=== PATIENT | female | born 1960 | race Caucasian/White ===

== ENCOUNTER 2021-06-25 06:20 | Emergency (ER) | payer OTHER ==
[2021-06-25] MEDS ORDERED: Cyclobenzaprine 10 MG Tab PO ONE (06:44)
[2021-06-25] MEDS ORDERED: Ketorolac 15 MG/ML SDV IM STA (06:44)
[2021-06-25] MEDS ORDERED: Lidocaine 5% 700 MG Patch TOP ONE (06:45)
--- NOTE | 2021-06-25 06:51 | EDM.PDOC ---
ED HPI GENERAL MEDICAL PROBLEM - General Chief Complaint: Back Pain or Injury Stated Complaint: BACK PAIN Time Seen by Provider: 06/25/21 06:44 - History of Present Illness INITIAL COMMENTS - FREE TEXT/NARRATIVE: HISTORY AND PHYSICAL: History of present illness: 60-year-old female who presents ER today complaining of upper back pain that occurred when she was lifting a box to go to the freezer. Patient denies any recent fevers, shakes, chills, nausea, vomiting, diarrhea, dysuria, frequency, urgency, chest pain, shortness of breath. Patient reports this occurred at approximately 5 AM while she was at [employer]. Patient has any weakness to her upper or lower extremities. Patient has any paresthesias. Patient reports pain increases with rotation of her torso. Review of systems: As per history of present illness and below otherwise all systems reviewed and negative. Past medical history: As per history of present illness and as reviewed below otherwise noncontributory. Surgical history: As per history of present illness and as reviewed below otherwise noncontributory. Social history: No reported history of drug abuse. Family history: As per history of present illness and as reviewed below otherwise noncontributory. Physical exam: This patient was seen and evaluated during the 2019 SARS-CoV-2 novel coronavirus pandemic period. Community viral transmission is ongoing at time of this en counter and the emergency department is operating under pandemic response procedures. Constitutional: Patient is oriented to person, place, and time. Appears well- developed and well-nourished. No distress. HEENT: Moist mucous membranes Head: Normocephalic and atraumatic Eyes: Right eye exhibits no discharge. Left eye exhibits no discharge. No scleral icterus Neck: Normal range of motion. No tracheal deviation present. Cardiovascular: Normal rate and regular rhythm. Pulmonary: Effort normal, no respiratory distress. Abdominal: No distention Musculoskeletal: Normal range of motion Neurologic: Alert and oriented to person, place and time. Skin: [place], warm and dry. Psychiatric: Normal mood and affect. Behavior is normal. Judgment and thought content normal. Nursing note and vital signs have been reviewed Patient has tenderness palpation to her mid thoracic region both midline and left and right lateral. Patient has no step-off or deformity noted on palpation of her thoracic spine. Lungs are clear without any wheezing with a rhonchi. Diagnostics: [] Therapeutics: [] Assessment and plan: 60-year-old with acute onset of back pain while lifting a heavy object at work. Patient be given Flexeril p.o., Toradol IM and a Lidoderm patch. Patient will be instructed to follow-up with Workmen's Comp. Reassessment at the time of disposition demonstrates that the patient is in no acute distress. The patient has remained stable throughout the entire ED visit and is without objective evidence for acute process requiring urgent intervention or hospitalization. The patient is stable for discharge, counseling is provided as documented above, discussed symptomatic treatment and specific conditions for return. I have spoken with the patient/caregiver and discussed todays findings, in addition to providing specific details for the plan of care. Questions are answered and there is agreement with the plan. Definitive disposition and diagnosis as appropriate pending reevaluation and review of above. - Related Data Allergies Allergy/AdvReac Type Severity Reaction Status Date / Time penicillin G Allergy Other Verified 06/25/21 06:41 Home Meds: Home Meds Cyclobenzaprine [Flexeril] 10 mg PO TID PRN #20 tab 06/25/21 [Rx] Ibuprofen 600 mg PO Q6HR PRN #30 tablet 06/25/21 [Rx] Ipratropium [Atrovent] 1 puff INH Q4H 06/25/21 [History] Lidocaine 5% [Lidoderm 5%] 1 patch TOP DAILY PRN #7 patch 06/25/21 [Rx] Past Medical History Respiratory History: Reports: Asthma Social & Family History - Family History Family Medical History: No Pertinent Family History - Recreational Drug Use Recreational Drug Use: No ED ROS GENERAL - Review of Systems Review Of Systems: See Below ED EXAM, GENERAL - Physical Exam Exam: See Below Course - Vital Signs Last Recorded V/S: Last Vital Signs Temp 97.7 F 06/25/21 06:39 Pulse 115 H 06/25/21 06:39 Resp 15 06/25/21 06:39 BP 122/71 06/25/21 06:39 Pulse Ox 97 06/25/21 06:39 - Orders/Labs/Meds Meds: Medications Discontinued Medications Generic Name Dose Route Start Last Admin Trade Name Freq PRN Reason Stop Dose Admin Cyclobenzaprine HCl 10 mg 06/25/21 06:44 06/25/21 06:55 Cyclobenzaprine 10 Mg Tab PO 06/25/21 06:45 10 mg ONETIME ONE Administration Ketorolac Tromethamine 15 mg 06/25/21 06:44 06/25/21 06:53 Ketorolac 15 Mg/Ml Sdv IM 06/25/21 06:45 15 mg Q6H STA Administration Lidocaine 700 mg 06/25/21 06:45 06/25/21 06:55 Lidocaine 5% 700 Mg Patch TOP 06/25/21 06:46 700 mg ONETIME ONE Administration Departure - Departure Time of Disposition: 06:47 Disposition: Home, Self-Care 01 Condition: Good Clinical Impression: Back pain Qualifiers: Back pain location: low back pain Chronicity: acute - Discharge Information Prescriptions: Cyclobenzaprine [Flexeril] 10 mg PO TID PRN #20 tab PRN Reason: Muscle Spasm Ibuprofen 600 mg PO Q6HR PRN #30 tablet PRN Reason: Pain Lidocaine 5% [Lidoderm 5%] 1 patch TOP DAILY PRN #7 patch PRN Reason: Pain Instructions: Back Injury Prevention, [id number] Referrals: PCP,None [Primary Care Provider] - Forms: ED Department Discharge Additional Instructions: You were seen and evaluated in the ER today secondary to acute onset of back pain from lifting heavy object. You were given a shot of Toradol, Flexeril and a lidocaine patch. You will be given a prescription for a lidocaine patch, ibuprofen and Flexeril. Please follow-up with the occupational medicine clinic for further evaluation. [facility] [address] The following information is given to patients seen in the emergency department who are being discharged to home. This information is to outline your options for follow-up care. We provide all patients seen in our emergency department with a follow-up referral. The need for follow-up, as well as the timing and circumstances, are variable d epending upon the specifics of your emergency department visit. If you don't have a primary care physician on staff, we will provide you with a referral. We always advise you to contact your personal physician following an emergency department visit to inform them of the circumstance of the visit and for follow-up with them and/or the need for any referrals to a consulting specialist. The emergency department will also refer you to a specialist when appropriate. This referral assures that you have the opportunity for follow-up care with a specialist. All of these measure are taken in an effort to provide you with optimal care, which includes your follow-up. Under all circumstances we always encourage you to contact your private physician who remains a resource for coordinating your care. When calling for follow-up care, please make the office aware that this follow-up is from your recent emergency room visit. If for any reason you are refused follow-up, please contact the [facility] Emergency Department at and asked to speak to the emergency department charge nurse. [facility] [address] [place] [address] [id number] [facility] [address] [place] [id number] Sepsis Event Note (ED) - Evaluation Sepsis Screening Result: No Definite Risk
== END 2021-06-25 07:24 | disposition home or self-care (01) ==
LOC: MW.ED 06:20
DX: M54.5 Low back pain (principal); Z88.0 Allergy status to penicillin; X50.0XXA Overexertion from strenuous movement or load, initial encounter
CPT/HCPCS: 96372; 99283; A9270; J1885

== ENCOUNTER 2022-06-07 16:21 | Emergency (ER) | payer BC, OTHER ==
[2022-06-07] MEDS ORDERED: Morphine 4 MG/ML VIAL IVPUSH ONE (17:50)
[2022-06-07] MEDS ORDERED: Dextrose 5%-Lactated Ringers 1,000 ML IV STA (17:50)
[2022-06-07] MEDS ORDERED: Ondansetron 4 MG/2 ML SDV IVPUSH ONE (17:50)
[2022-06-07 18:19] LABS: POTASSIUM,K 3.4 mmol/L (3.5-5.1)
[2022-06-07 18:40] LABS: CORONAVIRUS COVID-19 NAA NEGATIVE (NEGATIVE); INFLUENZA A NAA NEGATIVE (NEGATIVE); INFLUENZA B NAA NEGATIVE (NEGATIVE)
[2022-06-07] MEDS ORDERED: Iopamidol 755 MG/ML 500 ML Multipack Bottle IVPUSH STA (18:57)
== END 2022-06-07 20:01 | disposition home or self-care (01) ==
LOC: MW.ED 16:21
DX: S16.1XXA Strain of muscle, fascia and tendon at neck level, initial encounter (principal); R10.84 Generalized abdominal pain; R11.2 Nausea with vomiting, unspecified; R19.7 Diarrhea, unspecified; R05.9 Cough, unspecified; Z88.6 Allergy status to analgesic agent; Z88.0 Allergy status to penicillin; Z20.822 Contact with and (suspected) exposure to COVID-19; X58.XXXA Exposure to other specified factors, initial encounter
CPT/HCPCS: 0240U; 36415; 71045; 74177; 80053; 83690; 83735; 84484; 85025; 93005; 96361; 96374; 96375; 99285; J2270; J2405; J7121; Q9967; 93010; 99284

== ENCOUNTER 2023-04-21 07:21 | Emergency (ER) | payer BC, OTHER ==
[2023-04-21] MEDS ORDERED: Lactated Ringers 1,000 ML IV ONE (07:29)
[2023-04-21] MEDS ORDERED: Ondansetron 4 MG/2 ML SDV IVPUSH ONE (07:30)
[2023-04-21 08:16] LABS: BASOPHILS PERCENT AUTO 0.7 % (0.0-1.5); EOSINOPHILS ABSOLUTE AUTO 0.1 K/uL (0.0-0.7); HEMATOCRIT 43.4 % (36.0-46.0); HEMOGLOBIN 15.2 g/dL (12.0-16.0); LYMPHOCYTES ABSOLUTE AUTO 2.1 K/uL (0.6-2.4); LYMPHOCYTES PERCENT AUTO 35.3 % (16.0-40.0); MEAN CORPUSCULAR HEMOGLOBIN 29.3 pg (27.0-32.0); MEAN CORPUSCULAR VOLUME 83.8 fL (80.0-98.0); MONOCYTES ABSOLUTE AUTO 0.4 K/uL (0.0-0.8); MONOCYTES PERCENT AUTO 7.2 % (0.0-15.0); NEUTROPHILS ABSOLUTE AUTO 3.2 K/uL (1.4-5.7); NEUTROPHILS PERCENT AUTO 54.8 % (48.0-80.0); NRBC ABSOLUTE 0 K/uL; PLATELET COUNT,PLT 227 K/uL (150-400); RED BLOOD CELL COUNT 5.18 M/uL (4.30-5.90); WHITE BLOOD CELL COUNT,WBC 5.87 K/uL (4.0-11.0)
[2023-04-21] MEDS ORDERED: Acetaminophen 325 MG Tab PO ONE (08:34)
[2023-04-21] MEDS ORDERED: Ketorolac 30 MG/ML SDV IVPUSH STA (08:34)
[2023-04-21] MEDS ORDERED: Lidocaine 4% 1 each Patch TOP STA (08:35)
[2023-04-21 08:43] LABS: ALANINE AMINOTRANSFERASE,ALT 43 IU/L (14-63); ALKALINE PHOSPHATASE 89 U/L (46-116); ASPARTATE AMNIOTRANSFERASE,AST 32 IU/L (15-37); BILIRUBIN TOTAL 0.4 mg/dL (0.2-1.0); BLOOD UREA NITROGEN,BUN 20 mg/dL (7.0-18.0); CALCIUM 9.8 mg/dL (8.5-10.1); CARBON DIOXIDE,CO2 23.2 mmol/L (21.0-32.0); CHLORIDE,CL 104 mmol/L (98-107); CREATININE 0.9 mg/dL (0.6-1.0); EST CRCL DRUG DOSING (CG) 47.15 mL/min; GLUCOSE RANDOM 105 mg/dL (74-106); POTASSIUM,K 3.5 mmol/L (3.5-5.1); SODIUM,NA 140 mmol/L (136-145)
[2023-04-21 08:47] LABS: ESTIMATED GFR 73 mL/min (>60)
== END 2023-04-21 11:28 | disposition home or self-care (01) ==
LOC: MW.ED 07:21
DX: R07.89 Other chest pain (principal); J45.909 Unspecified asthma, uncomplicated; Z88.6 Allergy status to analgesic agent; Z88.0 Allergy status to penicillin
CPT/HCPCS: 36415; 71045; 80053; 84484; 85025; 93005; 96361; 96374; 96375; 99285; A9270; J1885; J2405; J7120; 93010; 99284

== ENCOUNTER 2025-02-18 10:06 | Emergency (ER) | payer BC ==
[2025-02-18] MEDS: Orphenadrine 60 MG/2 ML Inj IM ONE (11:11)
[2025-02-18] MEDS: Lidocaine 4% Patch TOP STA (11:11)
[2025-02-18] MEDS: Ketorolac 30 MG/ML SDV IM ONE (11:12)
== END 2025-02-18 12:16 | disposition home or self-care (01) ==
LOC: MW.ED 10:06
DX: M43.6 Torticollis (principal); J45.909 Unspecified asthma, uncomplicated; Z88.0 Allergy status to penicillin; Z88.6 Allergy status to analgesic agent; Z79.899 Other long term (current) drug therapy; Z75.3 Unavailability and inaccessibility of health-care facilities
CPT/HCPCS: 96372; 99283; A9270; J1885; J2360